=== PATIENT | male | born 1965 | race African-American/Black ===

== ENCOUNTER 2016-12-28 23:24 | Emergency (ER) | payer MEDICAID ==
[~2016-12-28] VITALS: Ht 180.3 cm; Wt 66.7 kg
[~2016-12-28 23:24] MED LIST: ALBUTEROL SULF8.5 GM INH; AUGMENTIN 875-1 EAC1 ORAL; BACTRIM DS TAB1 EAC1 ORAL; BENADRYL50 MG PO; COGENTIN1 MG PO; IBUPROFEN600 M1 PO; MOTRIN600 MG PO; NORCO 5-325 TA1 EACH PO; PROLIXIN10 MG ORAL; TESSALON PERLE100 M2 ORAL; ZITHROMAX250 MG ORAL; ZYPREXA5 MG ORAL
[2016-12-29 00:15] LABS: EOSINOPHILS % (AUTO) 3.1 % (0.0-3.0); LYMPHOCYTES % (AUTO) 33.5 % (20.0-45.0); MEAN CORPUSCULAR HEMOGLOBIN 34.6 PG (27.0-31.0); MEAN CORPUSCULAR HGB CONC 35.1 G/DL (32.0-36.0); MEAN CORPUSCULAR VOLUME 98 FL (80-99); MEAN PLATELET VOLUME 6.7 FL (6.5-10.1); MONOCYTES % (AUTO) 12.6 % (1.0-10.0); NEUTROPHILS % (AUTO) 49.9 % (45.0-75.0); PLATELET COUNT 167 K/UL (150-450); RED BLOOD COUNT 3.68 M/UL (4.70-6.10); RED CELL DISTRIBUTION WIDTH 10.7 % (11.6-14.8); WHITE BLOOD COUNT 6.4 K/UL (4.8-10.8)
[2016-12-29 00:22] LABS: APPEARANCE,URINE CLEAR; KETONES,URINE NEGATIVE (NEGATIVE); LEUKOCYTE ESTERASE ,URINE NEGATIVE (NEGATIVE); NITRITE,URINE NEGATIVE (NEGATIVE); PH,URINE 6 (4.5-8.0); PROTEIN,URINE NEGATIVE (NEGATIVE); UROBILINOGEN,URINE NORMAL MG/DL (0.0-1.0)
--- NOTE | 2016-12-29 00:27 | Emergency Room Report ---
History of Present Illness General Chief Complaint: Abdominal Pain Source: Patient Present Illness HPI Is a 51-year-old male with a history of rheumatoid arthritis. He presents with chief complaint abdominal pain. Onset for last month. Diffuse in nature. Worse with eating. No nausea or vomiting. No diarrhea. He also complaining of generalize leg pain from his arthritis. Pain he said is 10 out of 10. Wanted pain medication for it. No other complaint. No trauma. No fever. Allergies: Coded Allergies: No Known Allergies (Unverified , 10/27/12) Patient History Past Medical History: see triage record, old chart reviewed Past Surgical History: other Pertinent Family History: none Social History: Denies: alcohol use, drug use, smoking Immunizations: other Reviewed Nursing Documentation: PMH: Agreed, PSxH: Agreed Nursing Documentation-PMH Past Medical History: No History, Except For Hx Cardiac Problems: No - bronchitis Hx Hypertension: No - high cholesterol Hx Pacemaker: No Hx Asthma: Yes - bronchitis Hx COPD: No Hx Diabetes: No Hx Cancer: No Hx Gastrointestinal Problems: Yes - ulcers, hx of gall stone Hx Dialysis: No Hx Neurological Problems: No Hx Cerebrovascular Accident: No Hx Seizures: No Review of Systems Eye: Denies: blurred vision, eye pain ENT: Denies: ear pain, nose congestion, throat swelling Respiratory: Denies: cough, shortness of breath Cardiovascular: Denies: chest pain, palpitations Gastrointestinal: Reports: abdominal pain, Denies: diarrhea, nausea, vomiting Musculoskeletal: Reports: joint pain, Denies: back pain Skin: Denies: rash Neurological: Denies: headache, numbness Endocrine: Denies: increased thirst, increased urine Hematologic/Lymphatic: Denies: easy bruising All Other Systems: negative except mentioned in HPI Physical Exam Vital Signs Date Time Temp Pulse Resp B/P Pulse Ox O2 Delivery O2 Flow Rate FiO2 12/28/16 23:37 97.9 76 16 98/65 98 Room Air vitals normal Sp02 EP Interpretation: reviewed, normal General Appearance: well appearing, no apparent distress, other - Very sleepy. Hard time waking up Head: normocephalic, atraumatic Eyes: bilateral eye EOMI, bilateral eye PERRL ENT: hearing grossly normal, normal pharynx Neck: full range of motion, supple, no meningismus Respiratory: chest non-tender, lungs clear, normal breath sounds Cardiovascular #1: regular rate, rhythm, no murmur Gastrointestinal: normal bowel sounds, non tender, no mass, no organomegaly, no bruit, non-distended Musculoskeletal: back normal, gait/station normal, normal range of motion Neurologic: oriented x3 Psychiatric: mood/affect normal Skin: warm/dry Medical Decision Making Diagnostic Impression: Primary Impression: Abdominal pain of unknown etiology ER Course Patient presents with abdominal pain. My exam showed benign abdomen. He sleeping comfortably. No evidence of acute abdomen. No evidence of infection. We'll discharge home. Lab Results Impression labs unremarkable Last Vital Signs Date Time Temp Pulse Resp B/P Pulse Ox O2 Delivery O2 Flow Rate FiO2 12/28/16 23:37 97.9 76 16 98/65 98 Room Air Status: improved Disposition: HOME, SELF-CARE Condition: Stable Scripts Omeprazole Magnesium (PRILOSEC OTC) 20 Mg Tablet. 20 MG ORAL DAILY, #30 TAB Prov: KATIE GIBSON M.D. 12/29/16 Referrals: JIMMIEREFERRING (PCP) Patient Instructions: Abdominal Pain, Adult Additional Instructions: Followup with your in 7 days. You may need a referral to see a environmental economist for colonoscopy and endoscopy. Return if symptom worsen. KATIE GIBSON M.D. Dec 29, 2016 00:26
[2016-12-29 00:35] LABS: ALANINE AMINOTRANSFERASE 20 U/L (3-41); ALBUMIN/GLOBULIN RATIO 1.2 (1.0-2.7); ALCOHOL < 10 mg/dL; ANION GAP 14 (5-15); ASPARTATE AMINO TRANSFERASE 26 U/L (5-40); CALCIUM 9.1 mg/dL (8.6-10.2); CARBON DIOXIDE 28 mEQ/L (20-30); CHLORIDE 99 mEQ/L (98-107); CREATININE 0.9 mg/dL (0.7-1.2); GLOMERULAR FILTRATION RATE > 60 mL/min (>60); HEMOLYSIS 3; LIPASE 36 U/L (< 60); POTASSIUM 3.9 mEQ/L (3.4-4.9); SODIUM 141 mEQ/L (135-145); TOTAL PROTEIN 6.7 g/dL (6.6-8.7)
[2016-12-29] MEDS ORDERED: PRILOSEC OTC20 MG ORAL (01:04)
[2016-12-29 01:14] VITALS: BP 122/78
[2016-12-29 01:17] VITALS: BP 122/78
== END 2016-12-29 01:15 | disposition home or self-care (01) ==
LOC: EMR 12-29 00:07
DX: R10.9 Unspecified abdominal pain (principal); M06.9 Rheumatoid arthritis, unspecified; Z87.19 Personal history of other diseases of the digestive system
CPT/HCPCS: 36415; 80053; 80300; 80329; 81003; 83690; 85025; 99283

== ENCOUNTER 2017-01-15 13:55 | Emergency (ER) | payer MEDICAID ==
[~2017-01-15] VITALS: Ht 182.9 cm; Wt 68.0 kg
[~2017-01-15 13:55] MED LIST changes: +PRILOSEC OTC20 MG ORAL
[2017-01-15 15:16] LABS: APPEARANCE,URINE CLEAR; KETONES,URINE NEGATIVE (NEGATIVE); LEUKOCYTE ESTERASE ,URINE NEGATIVE (NEGATIVE); NITRITE,URINE NEGATIVE (NEGATIVE); PH,URINE 6.5 (4.5-8.0); PROTEIN,URINE NEGATIVE (NEGATIVE); UROBILINOGEN,URINE NORMAL MG/DL (0.0-1.0)
--- NOTE | 2017-01-15 15:23 | Emergency Room Report ---
History of Present Illness General Chief Complaint: Male Urogenital Problems Present Illness HPI 51 YO Male presents to the ED c/o polyuria x 1 year. pt. reports hx of gallstones and ulcers. pt. denies hx of DM. pt. is not cooperative in answering questions, and repeatedly states "read the nurses note." HPI and ROS limited due to poor pt. cooperation. Allergies: Coded Allergies: No Known Allergies (Unverified , 10/27/12) Patient History Past Medical History: see triage record Past Surgical History: none Pertinent Family History: none Reviewed Nursing Documentation: PMH: Agreed, PSxH: Agreed Nursing Documentation-PMH Hx Cardiac Problems: No Hx Hypertension: No Hx Pacemaker: No Hx Asthma: No Hx COPD: No Hx Diabetes: No Hx Cancer: No Hx Gastrointestinal Problems: Yes - ulcers, hx of gall stone Hx Dialysis: No Hx Neurological Problems: No Hx Cerebrovascular Accident: No Hx Seizures: No Review of Systems All Other Systems: limited - due to poor pt. cooperation. Physical Exam Vital Signs Date Time Temp Pulse Resp B/P Pulse Ox O2 Delivery O2 Flow Rate FiO2 01/15/17 14:19 98.4 74 18 102/69 98 Room Air Sp02 EP Interpretation: reviewed, normal General Appearance: no apparent distress, alert, GCS 15, non-toxic Head: normocephalic, atraumatic Eyes: bilateral eye PERRL, bilateral eye normal inspection ENT: hearing grossly normal, normal pharynx, no angioedema, normal voice Neck: full range of motion, supple/symm/no masses Respiratory: lungs clear, normal breath sounds, speaking full sentences - mildly slurred speech. Cardiovascular #1: regular rate, rhythm, no edema Gastrointestinal: normal bowel sounds, non tender, soft, no guarding, no rebound Rectal: deferred Genitourinary: normal inspection, no CVA tenderness Musculoskeletal: back normal, gait/station normal, normal range of motion, non- tender Neurologic: alert, oriented x3, responsive, motor strength/tone normal, sensory intact, speech normal Psychiatric: judgement/insight normal, memory normal, other - Pt is not cooperative, and refuses to answer questions. Skin: normal color, no rash, warm/dry, well hydrated Medical Decision Making PA Attestation Dr. Cartwright is my supervising Physician whom patient management has been discussed with. Diagnostic Impression: Primary Impression: Frequency of urination and polyuria ER Course 51 YO Male presents to the ED c/o polyuria x 1 year. pt. reports hx of gallstones and ulcers. pt. denies hx of DM. pt. is not cooperative in answering questions, and repeatedly states "read the nurses note." HPI and ROS limited due to poor pt. cooperation. Ddx considered but are not limited to UTi , Pyelo, STI, Stone, BPH, Dm, DM insipidus Vital signs: are WNL, pt. is afebrile, non-tachycardic H&PE are most consistent with polyuria, possible UTI, will also check glucose, and UA. pt. is non-toxic in appearance, NAD, and with provided information and PE I do not suspect an emergent condition at this time. d/w Supervising physician plan of evaluation. suspect ETOH. ORDERS: - UA labs are attached : no evidence of infection, normal specific gravity. - AccuCheck: 93 - performed by NAVYA Gotti ED INTERVENTIONS: None required at this time. - D/w pt. the results of his UA and accucheck, and to follow up with PCP. D/w pt. to return to ED with worsening of symptoms or new symptoms. DISCHARGE: At this time pt. is stable for d/c to home. Will provide printed patient care instructions, and any necessary prescriptions. Care plan and follow up instructions have been discussed with the patient prior to discharge. Labs Test 01/15/17 14:53 Urine Color Pale yellow Urine Appearance Clear Urine pH 6.5 (4.5-8.0) Urine Specific [place] 1.010 (1.005-1.035) Urine Protein Negative (NEGATIVE) Urine Glucose (UA) Negative (NEGATIVE) Urine Ketones Negative (NEGATIVE) Urine Occult Blood Negative (NEGATIVE) Urine Nitrite Negative (NEGATIVE) Urine Bilirubin Negative (NEGATIVE) Urine Urobilinogen Normal MG/DL (0.0-1.0) Urine Leukocyte Esterase Negative (NEGATIVE) Last Vital Signs Date Time Temp Pulse Resp B/P Pulse Ox O2 Delivery O2 Flow Rate FiO2 01/15/17 14:19 98.4 74 18 102/69 98 Room Air Disposition: HOME, SELF-CARE Condition: Stable Referrals: JIMMIEREFERRING (PCP) Patient Instructions: Urinary Frequency Additional Instructions: Take medications as directed. Follow up with YOUR PRIMARY CARE PROVIDER in 3-5 days, for further evaluation of your symptoms. Please see list of free/reduced cost health clinics for follow up if you do not have a primary care provider. Return sooner to ED if new symptoms occur, or current symptoms become worse. - Please note that this Emergency Department Report was dictated using [email or web address] teacher technology software, occasionally this can lead to erroneous entry secondary to interpretation by the dictation equipment. Jocy Bell Jan 15, 2017 15:23
[2017-01-15 15:47] VITALS: BP 122/73
== END 2017-01-15 15:47 | disposition home or self-care (01) ==
LOC: EMR 14:56
DX: R35.8 Other polyuria (principal); R35.0 Frequency of micturition
CPT/HCPCS: 81003; 82962; 99283

== ENCOUNTER 2017-02-16 02:25 | Emergency (ER) | payer MEDICAID ==
[~2017-02-16] VITALS: Ht 182.9 cm; Wt 66.7 kg
[2017-02-16 02:50] VITALS: BP 100/65
[2017-02-16] MEDS ORDERED: TAMSULOSIN HCL0.4 MG ORAL (03:25)
--- NOTE | 2017-02-16 03:26 | Emergency Room Report ---
History of Present Illness General Chief Complaint: General Complaint Source: Patient Present Illness HPI Is a 51-year-old male with history of gallstone. He came in complaining of abdominal pain. Is a chronic problem for him. Once he got here he went to the bathroom and himself. He's been sitting down cleaning his shoes. He is very vague in his pain complaint. No nausea no vomiting. No fever or chills. He is asking for food. Also has a chronic issue with his "kidneys". What medicine for it. He said he had a hard time urinating and takes forever to urinate. Denies any fever chill. Denies any nausea vomiting. Been here for the same issue. Allergies: Coded Allergies: No Known Allergies (Unverified , 10/27/12) Patient History Past Medical History: see triage record, old chart reviewed Past Surgical History: none Pertinent Family History: none Social History: Reports: smoking Immunizations: other Reviewed Nursing Documentation: PMH: Agreed, PSxH: Agreed Nursing Documentation-PMH Past Medical History: No History, Except For Hx Cardiac Problems: No Hx Hypertension: No Hx Pacemaker: No Hx Asthma: No Hx COPD: No Hx Diabetes: No Hx Cancer: No Hx Gastrointestinal Problems: Yes - ulcers, hx of gall stone Hx Dialysis: No Hx Neurological Problems: No Hx Cerebrovascular Accident: No Hx Seizures: No Review of Systems Eye: Denies: blurred vision, eye pain ENT: Denies: ear pain, nose congestion, throat swelling Respiratory: Denies: cough, shortness of breath Cardiovascular: Denies: chest pain, palpitations Gastrointestinal: Reports: abdominal pain, Denies: diarrhea, nausea, vomiting Musculoskeletal: Denies: back pain, joint pain Skin: Denies: rash Neurological: Denies: headache, numbness Endocrine: Denies: increased thirst, increased urine Hematologic/Lymphatic: Denies: easy bruising All Other Systems: negative except mentioned in HPI Physical Exam Vital Signs Date Time Temp Pulse Resp B/P Pulse Ox O2 Delivery O2 Flow Rate FiO2 02/16/17 02:46 97.9 77 15 100/65 100 Room Air vitals normal Sp02 EP Interpretation: reviewed, normal General Appearance: well appearing, no apparent distress, alert Head: normocephalic, atraumatic Eyes: bilateral eye EOMI, bilateral eye PERRL ENT: hearing grossly normal, normal pharynx Neck: full range of motion, supple, no meningismus Respiratory: chest non-tender, lungs clear, normal breath sounds Cardiovascular #1: regular rate, rhythm, no murmur Gastrointestinal: normal bowel sounds, non tender, no mass, no organomegaly, no bruit, non-distended Musculoskeletal: back normal, gait/station normal, normal range of motion Psychiatric: mood/affect normal Skin: warm/dry Medical Decision Making Diagnostic Impression: Primary Impression: Abdominal pain Qualified Codes: R10.84 - Generalized abdominal pain Additional Impression: Dysuria ER Course Patient with abdominal pain. This is chronic in nature. He looks very comfortable. Notice of acute abdomen. No pain on my exam. We'll discharge home. Last Vital Signs Date Time Temp Pulse Resp B/P Pulse Ox O2 Delivery O2 Flow Rate FiO2 02/16/17 02:46 97.9 77 15 100/65 100 Room Air Status: improved Disposition: HOME, SELF-CARE Condition: Stable Scripts Tamsulosin Hcl (TAMSULOSIN HCL*) 0.4 Mg Cap.er.24h 0.4 MG ORAL BEDTIME, #30 CAP Prov: KATIE GIBSON M.D. 02/16/17 Referrals: LYUDMIAL SAMUEL (PCP) Additional Instructions: Followup with your DrChristy in 7 days. Return if symptom worsen. KATIE GIBSON M.D. Feb 16, 2017 03:26
[2017-02-16 03:45] VITALS: BP 100/65
== END 2017-02-16 03:45 | disposition home or self-care (01) ==
LOC: EMR 03:05
DX: R10.9 Unspecified abdominal pain (principal); R30.0 Dysuria; G89.29 Other chronic pain; F17.200 Nicotine dependence, unspecified, uncomplicated
CPT/HCPCS: 99283

== ENCOUNTER 2017-03-23 05:33 | Emergency (ER) | payer MEDICAID ==
[~2017-03-23] VITALS: Ht 182.9 cm; Wt 70.8 kg
[~2017-03-23 05:33] MED LIST changes: +TAMSULOSIN HCL0.4 MG ORAL
[2017-03-23] MEDS ORDERED: Ketorolac 60mg Inj IM ONE (06:15)
[2017-03-23] MEDS ORDERED: TYLENOL325 MG ORAL (06:17)
[2017-03-23] MEDS ORDERED: LIDODERM700 M1 TOPIC (06:17)
[2017-03-23 06:31] VITALS: BP 110/74
[2017-03-23 06:43] VITALS: BP 110/74
--- NOTE | 2017-03-24 01:30 | Emergency Room Report ---
History of Present Illness General Chief Complaint: Pain Source: Patient Present Illness HPI Patient 51-year-old male who presented after increased generalized neck pain. Patient gradual onset of symptoms. Patient prior history of rheumatoid arthritis. He reported having a recent trauma. The patient denied any numbness or weakness to his extremities. He stated that he had previously been evaluated and diagnosed with rheumatoid arthritis Allergies: Coded Allergies: No Known Allergies (Unverified , 10/27/12) Patient History Past Medical History: see triage record Reviewed Nursing Documentation: PMH: Agreed, PSxH: Agreed Nursing Documentation-PMH Hx Cardiac Problems: No Hx Hypertension: No Hx Pacemaker: No Hx Asthma: No Hx COPD: No Hx Diabetes: No Hx Cancer: No Hx Gastrointestinal Problems: Yes - ulcers, hx of gall stone Hx Dialysis: No Hx Neurological Problems: No Hx Cerebrovascular Accident: No Hx Seizures: No Review of Systems All Other Systems: negative except mentioned in HPI Physical Exam Vital Signs Date Time Temp Pulse Resp B/P (MAP) Pulse Ox O2 Delivery O2 Flow Rate FiO2 03/23/17 06:03 97.3 66 18 106/74 98 Room Air Sp02 EP Interpretation: reviewed, normal General Appearance: normal inspection, well appearing, no apparent distress, alert, GCS 15 Head: atraumatic ENT: normal ENT inspection, hearing grossly normal, normal voice Neck: normal inspection, full range of motion, supple, no bony tend Respiratory: normal inspection, lungs clear, normal breath sounds, no respiratory distress, no retraction, no wheezing Cardiovascular #1: regular rate, rhythm, no edema Gastrointestinal: normal inspection, normal bowel sounds, non tender, soft, no guarding, no hernia Genitourinary: no CVA tenderness Musculoskeletal: normal inspection, back normal, normal range of motion Neurologic: normal inspection, alert, responsive, speech normal Psychiatric: normal inspection, judgement/insight normal, mood/affect normal Skin: normal inspection, normal color, no rash Medical Decision Making Diagnostic Impression: Primary Impression: Chronic joint pain Additional Impression: Pain ER Course Presented for neck pain. Differential diagnosis included vertebral artery dissection, myocardial infarction, cervical fracture, arthritis, spondylolithises. Patient's benign exam and does not appear to require any further imaging or laboratory testing at this time. The patient appears to have arthritic pain to his neck which is likely related to his chronic joint pain. The patient has no recent trauma suggestive of need of x-rays and has adequate range of motion. The patient was given prescription for pain medications. The patient is advised to follow up with primary care doctor in 1 -2 days. Patient is advised to return if any worsening condition or if any changes in status that are concerning. Last Vital Signs Date Time Temp Pulse Resp B/P (MAP) Pulse Ox O2 Delivery O2 Flow Rate FiO2 03/23/17 06:47 97.7 03/23/17 06:43 18 110/74 98 Room Air 03/23/17 06:03 66 Status: improved Disposition: HOME, SELF-CARE Condition: Stable Scripts Acetaminophen (Tylenol) 325 Mg Tablet 650 MG ORAL Q6H Y for Prn Pain/Headache/Temp > 101, #30 TAB 0 Refills Prov: Ras Cartwright 03/23/17 Lidocaine (Lidoderm) 1 Each Adh..patch 1 PATCH TOPIC DAILY, #7 PATCH 0 Refills Patch(es) may remain in place for up to 12 hours in any 24-hour period. Prov: Ras Cartwright 03/23/17 Referrals: NON PHYSICIAN (PCP) Patient Instructions: Rheumatoid Arthritis Ras Cartwright Mar 24, 2017 01:30
== END 2017-03-23 06:42 | disposition home or self-care (01) ==
LOC: EMR 06:35
DX: G89.29 Other chronic pain (principal); M54.2 Cervicalgia; M06.9 Rheumatoid arthritis, unspecified
CPT/HCPCS: 96372; 99284

== ENCOUNTER 2017-04-28 00:04 | Emergency (ER) | payer MEDICAID ==
[~2017-04-28] VITALS: Ht 182.9 cm; Wt 68.0 kg
[~2017-04-28 00:04] MED LIST changes: +LIDODERM700 M1 TOPIC; +TYLENOL325 MG ORAL
[2017-04-28 00:20] VITALS: BP 106/71
[2017-04-28] MEDS ORDERED: AZITHROMYCIN250 MG ORAL (00:42)
[2017-04-28] MEDS ORDERED: FLONASE SENSIM9.9 ML NS (00:42)
--- NOTE | 2017-04-28 00:42 | Emergency Room Report ---
History of Present Illness General Chief Complaint: Upper Respiratory Illness Source: Patient, Medical Record Present Illness HPI Is a 51-year-old [place] male who is a smoker. He presents with chief complaint of sinus congestion for last 3 weeks. He went to [facility] and prescribe Sudafed. Said is not helping. No nausea vomiting. No fever or chills. Does have coughing. Denies any other complaint. Allergies: Coded Allergies: No Known Allergies (Unverified , 10/27/12) Patient History Past Medical History: see triage record, old chart reviewed Past Surgical History: other Pertinent Family History: none Social History: Reports: smoking Immunizations: other Reviewed Nursing Documentation: PMH: Agreed, PSxH: Agreed Nursing Documentation-PMH Hx Cardiac Problems: No Hx Hypertension: No Hx Pacemaker: No Hx Asthma: No Hx COPD: No Hx Diabetes: No Hx Cancer: No Hx Gastrointestinal Problems: Yes - ulcers, hx of gall stone Hx Dialysis: No Hx Neurological Problems: No Hx Cerebrovascular Accident: No Hx Seizures: No Review of Systems Eye: Denies: eye pain, blurred vision ENT: Reports: nose congestion, Denies: ear pain, throat swelling Respiratory: Reports: cough, Denies: shortness of breath Cardiovascular: Denies: chest pain, palpitations Gastrointestinal: Denies: abdominal pain, diarrhea, nausea, vomiting Musculoskeletal: Denies: back pain, joint pain Skin: Denies: rash Neurological: Denies: headache, numbness Endocrine: Denies: increased thirst, increased urine Hematologic/Lymphatic: Denies: easy bruising All Other Systems: negative except mentioned in HPI Physical Exam Vital Signs Date Time Temp Pulse Resp B/P (MAP) Pulse Ox O2 Delivery O2 Flow Rate FiO2 04/28/17 00:09 97.7 78 16 106/71 100 Room Air vitals normal Sp02 EP Interpretation: reviewed, normal General Appearance: well appearing, no apparent distress, alert Head: normocephalic, atraumatic Eyes: bilateral eye PERRL, bilateral eye EOMI ENT: hearing grossly normal, normal pharynx, other - Ears are obstructive with cerumen. Sinus congestion. Tenderness over maxillary sinus. Neck: full range of motion, supple, no meningismus Respiratory: chest non-tender, lungs clear, normal breath sounds Cardiovascular #1: regular rate, rhythm, no murmur Gastrointestinal: normal bowel sounds, non tender, no mass, no organomegaly, no bruit, non-distended Musculoskeletal: back normal, gait/station normal, normal range of motion Psychiatric: mood/affect normal Skin: warm/dry Procedures Additional Procedure Procedure Narrative Procedure: Cerumen disimpaction Indication: Cerumen impaction Description: I irrigated both ear canal with normal saline using an 18-gauge angiocatheter. Copious amount of cerumen removed. Patient felt better. Tolerated procedure without a problem. No trauma. TMs normal. No perforation. Medical Decision Making Diagnostic Impression: Primary Impression: Upper respiratory symptom Additional Impressions: Sinusitis, acute maxillary Qualified Codes: J01.00 - Acute maxillary sinusitis, unspecified Cerumen impaction Qualified Codes: H61.23 - Impacted cerumen, bilateral ER Course Patient with a viral upper respiratory infection. He has sinusitis. Symptoms been ongoing for over 3 weeks now. Because he is a smoker and duration of symptoms, will go ahead and put on antibiotics. Last Vital Signs Date Time Temp Pulse Resp B/P (MAP) Pulse Ox O2 Delivery O2 Flow Rate FiO2 04/28/17 00:09 97.7 78 16 106/71 100 Room Air Status: improved Disposition: HOME, SELF-CARE Condition: Stable Scripts Azithromycin* (ZITHROMAX*) 250 Mg Tablet 250 MG ORAL DAILY, #6 TAB 0 Refills Take two tablets by mouth today, then take one tablet by mouth daily for four days Prov: KATIE GIBSON M.D. 04/28/17 Fluticasone Furoate (FLONASE SENSIMIST) 9.9 Ml [place].susp 9.9 ML NS BID, #1 UNIT Prov: KATIE GIBSON M.D. 04/28/17 Patient Instructions: Upper Respiratory Infection, Adult Additional Instructions: Stop smoking. Followup with your DrChristy in 2 to 3 days. Return if worse. KATIE GIBSON M.D. Apr 28, 2017 00:42
[2017-04-28 00:50] VITALS: BP 106/71
== END 2017-04-28 00:50 | disposition home or self-care (01) ==
LOC: EMR 00:15
DX: J01.00 Acute maxillary sinusitis, unspecified (principal); H61.23 Impacted cerumen, bilateral; F17.200 Nicotine dependence, unspecified, uncomplicated; B34.9 Viral infection, unspecified
CPT/HCPCS: 69210; 99283

== ENCOUNTER 2018-02-20 05:18 | Emergency (ER) | payer MEDICAID ==
[~2018-02-20] VITALS: Ht 182.9 cm; Wt 63.5 kg
[~2018-02-20 05:18] MED LIST changes: +AZITHROMYCIN250 MG ORAL; +FLONASE SENSIM9.9 ML NS
[2018-02-20] MEDS ORDERED: Acetaminophen 500mg (ES) tab ORAL ONE (05:45)
[2018-02-20] MEDS ORDERED: PRILOSEC OTC20 MG ORAL (06:02)
[2018-02-20] MEDS ORDERED: LIDODERM700 M1 TOPIC (06:02)
[2018-02-20 06:09] VITALS: BP 101/65
--- NOTE | 2018-02-27 08:01 | Emergency Room Report ---
History of Present Illness General Chief Complaint: Pain Source: Patient Present Illness HPI Patient had 52-year-old male presented after increased lower extremity pain. Patient prior history of chronic arthritis. He reports having been taking pain medications without any improvement. Patient gradual onset of symptoms. He denies recent trauma. The patient denies any numbness or taking to his extremities. Patient reportedly had increased pain with ambulation. Allergies: Coded Allergies: No Known Allergies (Unverified , 10/27/12) Patient History Past Medical History: see triage record Nursing Documentation-H Hx Cardiac Problems: No - ARTHRITIS Hx Hypertension: No Hx Pacemaker: No Hx Asthma: No Hx COPD: No Hx Diabetes: No Hx Cancer: No Hx Gastrointestinal Problems: Yes - ulcers, hx of gall stone Hx Dialysis: No Hx Neurological Problems: No Hx Cerebrovascular Accident: No Hx Seizures: No Physical Exam General Appearance: well appearing, no apparent distress, alert, GCS 15, Chronically Ill Head: normocephalic, atraumatic ENT: hearing grossly normal, normal voice Neck: full range of motion, supple Respiratory: no respiratory distress, speaking full sentences Musculoskeletal: no calf tenderness, decreased range of mation, swelling Neurologic: normal inspection, alert, oriented x3, responsive, site worker III-XII nml as tested, motor strength/tone normal, abnormal gait - antalgic gait Psychiatric: mood/affect normal Skin: no rash Medical Decision Making Diagnostic Impression: Primary Impression: Chronic joint pain ER Course Patient present for extremity pain.Differential diagnosis included but was not limited to fracture, contusion, vascular insufficiency, aortic aneurysm, cellulitis. Patient has a benign exam and does not appear to require any further imaging or laboratory testing at this time. Patient presented with exacerbation of his chronic pain. Patient does not show any evidence of infection or vascular insufficiency at this time. Patient is given prescriptions for nonnarcotic pain medications. Status: improved Disposition: HOME, SELF-CARE Condition: Stable Scripts Omeprazole Magnesium (PRILOSEC OTC) 20 Mg Tablet.dr 20 MG ORAL DAILY, #30 TAB Prov: Ras Cartwright MD 02/20/18 Lidocaine (Lidoderm) 1 Each Adh..patch 1 PATCH TOPIC DAILY, #7 PATCH 0 Refills Patch(es) may remain in place for up to 12 hours in any 24-hour period. Prov: Ras Cartwright MD 02/20/18 Patient Instructions: Gastritis, Adult, Arthritis Ras Cartwright MD Feb 27, 2018 08:01
== END 2018-02-20 06:09 | disposition home or self-care (01) ==
LOC: EMR 05:49
DX: G89.29 Other chronic pain (principal); M25.50 Pain in unspecified joint; R26.9 Unspecified abnormalities of gait and mobility; M79.669 Pain in unspecified lower leg
CPT/HCPCS: 99283

== ENCOUNTER 2018-09-23 20:57 | Emergency (ER) | payer MEDICAID ==
[~2018-09-23] VITALS: Ht 172.7 cm; Wt 68.0 kg
[2018-09-23] MEDS ORDERED: NKM (21:36)
[2018-09-23 21:38] VITALS: BP 101/72
--- NOTE | 2018-09-23 21:40 | NUR ---
ED Nurse Note: Patient walked into ED stating he was "tired and hungry" denies any pain. pt vital signs are stable. pt is alert and oriented times 4.
[2018-09-23] MEDS ORDERED: guaiFENesin 100mg/5ml Liq ud ORAL ONE (21:45)
[2018-09-23] MEDS ORDERED: Acetaminophen 500mg (ES) tab ORAL ONE (21:45)
--- NOTE | 2018-09-23 21:52 | Emergency Room Report ---
History of Present Illness General Chief Complaint: General Complaint Source: Patient Present Illness HPI Patient is a 53-year-old male presented after increased hunger. Patient said he was hungry and denied any other current complaints. He stated he wanted some codeine-containing cough syrup. There is nothing to do with him he said he was hungry as well as here Allergies: Coded Allergies: No Known Allergies (Unverified , 10/27/12) Patient History Past Medical History: see triage record Reviewed Nursing Documentation: PMH: Agreed; PSxH: Agreed Nursing Documentation-PMH Past Medical History: No History, Except For Hx Cardiac Problems: No - ARTHRITIS Hx Hypertension: No Hx Pacemaker: No Hx Asthma: No Hx COPD: No Hx Diabetes: No Hx Cancer: No Hx Gastrointestinal Problems: Yes - ulcers, hx of gall stone Hx Dialysis: No Hx Neurological Problems: No Hx Cerebrovascular Accident: No Hx Seizures: No Review of Systems All Other Systems: negative except mentioned in HPI Physical Exam Vital Signs Date Time Temp Pulse Resp B/P (MAP) Pulse Ox O2 Delivery O2 Flow Rate FiO2 09/23/18 21:31 98.1 83 18 101/72 98 Room Air 09/23/18 21:38 98 General Appearance: well appearing, no apparent distress, alert, GCS 15 Head: normocephalic, atraumatic ENT: hearing grossly normal, normal voice Neck: full range of motion, supple Respiratory: chest non-tender, lungs clear, normal breath sounds, no respiratory distress, speaking full sentences Cardiovascular #1: normal inspection, regular rate, rhythm, no edema Gastrointestinal: normal inspection, soft Musculoskeletal: normal inspection, no calf tenderness Neurologic: normal inspection, alert, oriented x3, responsive, normal gait Psychiatric: mood/affect normal Skin: no rash Medical Decision Making Homeless Attestation I, Dr. Cartwright, the Treating physician, has assessed whether the patient is alert and oriented to person, place and time and has determined that the patient is clinically stable for discharge. Diagnostic Impression: Primary Impression: Hunger pain ER Course Patient presented for being hungry. He also additionally reports having some chronic pain to his right knee. Patient stated that he had increased hunger since leaving his rehab facility. Patient denies any other current medical complaints. Patient appears to have no acute medical need at this time. He was given some Tylenol due to chronic joint pain but does not appear to require any chronic medications.Patient was given a sandwich as well as some juice. Patient was noted to request some codeine-containing cough syrup but does not appear to have a cough. Patient will not be given this.Patient does not appear to require any current medical management. Last Vital Signs Date Time Temp Pulse Resp B/P (MAP) Pulse Ox O2 Delivery O2 Flow Rate FiO2 09/23/18 21:38 98.1 61 18 101/72 98 Room Air 09/23/18 21:38 98 Status: improved Disposition: HOME, SELF-CARE Condition: Stable Patient Instructions: Arthritis Ras Cartwright MD Sep 23, 2018 21:52
[2018-09-23 21:58] VITALS: BP 101/72
--- NOTE | 2018-09-23 21:59 | NUR ---
ER DISCHARGE NOTE: Patient is cleared to be discharged per ERMD, pt is aox4, on room air, with stable vital signs. pt was given dc and prescription instructions, pt was able to verbalize understanding, pt id band removed without complications. pt is able to ambulate with steady gait. pt took all belongings.
== END 2018-09-23 22:09 | disposition home or self-care (01) ==
LOC: EMR 21:59
DX: T73.0XXA Starvation, initial encounter (principal); G89.29 Other chronic pain; M25.561 Pain in right knee
CPT/HCPCS: 99281

== ENCOUNTER 2019-02-21 05:51 | Emergency (ER) | payer MEDICAID ==
[~2019-02-21] VITALS: Ht 170.2 cm; Wt 63.5 kg
[~2019-02-21 05:51] MED LIST changes: +NKM
[2019-02-21 06:00] VITALS: BP 106/70
--- NOTE | 2019-02-21 06:01 | NUR ---
ED Nurse Note: Patient walked in to ER due to lower extremity pain
[2019-02-21] MEDS ORDERED: IBUPROFEN600 MG ORAL (06:20)
--- NOTE | 2019-02-21 06:20 | Emergency Room Report ---
History of Present Illness General Chief Complaint: Pain Source: Patient, Medical Record Present Illness HPI Is a 53-year-old male who has history of chronic pain. He said he has arthritis in his legs and complaining of knee pain bilaterally. Is a chronic problem. He said he wants pain medication and cough medicine. He denies any coughing. No nausea no vomiting. Pain is 8 out of 10. No fever chills but no trauma. Worse with walking. Allergies: Coded Allergies: No Known Allergies (Unverified , 10/27/12) Patient History Past Medical History: see triage record, old chart reviewed Past Surgical History: none Pertinent Family History: none Social History: Reports: smoking Immunizations: other Reviewed Nursing Documentation: PMH: Agreed; PSxH: Agreed Nursing Documentation-PMH Past Medical History: No History, Except For Hx Cardiac Problems: No - ARTHRITIS Hx Hypertension: No Hx Pacemaker: No Hx Asthma: No Hx COPD: No Hx Diabetes: No Hx Cancer: No Hx Gastrointestinal Problems: Yes - ulcers, hx of gall stone Hx Dialysis: No Hx Neurological Problems: Yes - ARTHRITIS Hx Cerebrovascular Accident: No Hx Seizures: No Review of Systems Eye: Denies: eye pain, blurred vision ENT: Denies: ear pain, nose congestion, throat swelling Respiratory: Denies: cough, shortness of breath Cardiovascular: Denies: chest pain, palpitations Gastrointestinal: Denies: abdominal pain, diarrhea, nausea, vomiting Musculoskeletal: Reports: joint pain; Denies: back pain Skin: Denies: rash Neurological: Denies: headache, numbness Endocrine: Denies: increased thirst, increased urine Hematologic/Lymphatic: Denies: easy bruising All Other Systems: negative except mentioned in HPI Physical Exam Vital Signs Date Time Temp Pulse Resp B/P (MAP) Pulse Ox O2 Delivery O2 Flow Rate FiO2 02/21/19 05:52 99.0 63 16 106/70 (82) 95 Vitals normal Sp02 EP Interpretation: reviewed, normal General Appearance: well appearing, no apparent distress, alert Head: normocephalic, atraumatic Eyes: bilateral eye PERRL, bilateral eye EOMI ENT: hearing grossly normal, normal pharynx Neck: full range of motion, supple, no meningismus Respiratory: chest non-tender, lungs clear, normal breath sounds Cardiovascular #1: regular rate, rhythm, no murmur Gastrointestinal: normal bowel sounds, non tender, no mass, no organomegaly, no bruit, non-distended Musculoskeletal: back normal, gait/station normal, normal range of motion Psychiatric: mood/affect normal Medical Decision Making Diagnostic Impression: Primary Impression: Knee pain, bilateral Qualified Codes: M25.561 - Pain in right knee; M25.562 - Pain in left knee ER Course Presents with acute on chronic no trauma to warrant x-rays. No evidence of septic joint. No cellulitis. Patient walking without any difficulty. He is not coughing. He wanted narcotics initially. Last Vital Signs Date Time Temp Pulse Resp B/P (MAP) Pulse Ox O2 Delivery O2 Flow Rate FiO2 02/21/19 06:00 99.0 16 106/70 95 02/21/19 05:52 63 Status: unchanged Disposition: HOME, SELF-CARE Condition: Stable Scripts Ibuprofen* (MOTRIN*) 600 Mg Tablet 600 MG ORAL THREE TIMES A DAY, #30 TAB 0 Refills Prov: Eloy Hudson MD 02/21/19 Additional Instructions: Follow-up with your doctor in 7 days. Return if symptoms worsen. Eloy Hudson MD Feb 21, 2019 06:20
--- NOTE | 2019-02-21 06:32 | NUR ---
ED Nurse Note: Pt cleared by health care Provider for discharge. DC instructions/prescription was given and explained to pt and verbalized understanding of teachings. All medical deviecs such as ID band removed. Pt is AAO x4, ambulatory and left with all personal belongings.
--- NOTE | 2019-02-21 06:32 | NUR ---
ED Nurse Note: Pt was offered resources, rx, food but refused.
== END 2019-02-21 06:51 | disposition home or self-care (01) ==
LOC: EMR 06:34
DX: M25.561 Pain in right knee (principal); M25.562 Pain in left knee; F17.200 Nicotine dependence, unspecified, uncomplicated; M19.90 Unspecified osteoarthritis, unspecified site
CPT/HCPCS: 99282

== ENCOUNTER 2020-05-14 09:43 | Emergency (ER) | payer MEDICAID ==
[~2020-05-14] VITALS: Ht 182.9 cm; Wt 68.0 kg
[~2020-05-14 09:43] MED LIST changes: +IBUPROFEN600 MG ORAL
[2020-05-14 10:30] VITALS: BP 113/78
--- NOTE | 2020-05-14 10:38 | NUR ---
ED Nurse Note: Patient walked in due to coughing and cold x 4 weeks and is worse x 2 days. States he coughs up yellow phlegm. No reports of N/V/D. AAO x4 and ambulatory. Speaks in full sentences.
--- NOTE | 2020-05-14 10:39 | NUR ---
ED Nurse Note: Dr Jenkins at the bed side.
[2020-05-14] MEDS ORDERED: IBUPROFEN600 M1 ORAL (10:49)
[2020-05-14] MEDS ORDERED: VISTARIL50 MG ORAL (10:49)
[2020-05-14] MEDS ORDERED: PROMETHAZINE-D118 ML ORAL (10:49)
[2020-05-14] MEDS ORDERED: FLOMAX0.4 MG ORAL (10:49)
[2020-05-14 11:01] VITALS: BP 125/70
--- NOTE | 2020-05-14 11:01 | NUR ---
ER DISCHARGE NOTE: Patient is cleared to be discharged per ERMD, pt is aox4, on room air, with stable vital signs. pt was given dc and prescription instructions, pt was able to verbalize understanding, pt id band removed. pt is able to ambulate with steady gait. pt took all belongings.
--- NOTE | 2020-05-14 11:06 | Emergency Room Report ---
History of Present Illness General Chief Complaint: Upper Respiratory Illness Source: Patient Present Illness HPI Patient presents emergency department today with multiple complaints. Most of her complaints are chronic. Patient states that he has a headache chronic cough for months. He is requesting cough medications. Review of medical records show the patient has been here in the past requesting cough medications. I feel that is reasonable. Patient's lung exam is normal. He denies any phlegm production. Denies any fever nausea vomiting diarrhea chills. Symptoms noted to be mild to moderate. Patient also states that he has difficulty sleeping is requesting sleep medications. He denies any drug abuse or alcohol abuse. Patient also states that he often has to get up to urinate and has frequent urination. He states that he did does not have any dysuria urinary frequency in terms of the infection. But he states that he does have chronic issues with frequent urination. States that he usually gets medications. He states that he usually gets Flomax. Therefore we will refill patient's Flomax per his request. Patient also states that he has arthritis body aches and pains requesting Motrin. States a second in the past. Denies any leg pain at this time. Denies any trauma. No other complaints are noted patient noted to moderate. No other modifying factors. No other associated signs and symptoms. No other complaints were noted. Allergies: Coded Allergies: No Known Allergies (Unverified , 10/27/12) COVID-19 Screening Contact w/high risk pt: No Recent Travel to affected area: No Experienced COVID-19 symptoms?: No COVID-19 Testing performed BUTCHER HEAD: No Patient History Past Medical History: other - Chronic cough, insomnia, BPH Past Surgical History: none Pertinent Family History: none Social History: Denies: smoking, alcohol use, drug use Reviewed Nursing Documentation: PMH: Agreed; PSxH: Agreed Nursing Documentation-PMH Past Medical History: No History, Except For Hx Cardiac Problems: No - ARTHRITIS Hx Hypertension: No Hx Pacemaker: No Hx Asthma: No Hx COPD: No Hx Diabetes: No Hx Cancer: No Hx Gastrointestinal Problems: Yes - ulcers, hx of gall stone Hx Dialysis: No Hx Neurological Problems: Yes - ARTHRITIS Hx Cerebrovascular Accident: No Hx Seizures: No Review of Systems All Other Systems: negative except mentioned in HPI Physical Exam Vital Signs Date Time Temp Pulse Resp B/P (MAP) Pulse Ox O2 Delivery O2 Flow Rate FiO2 05/14/20 10:30 98.1 76 18 113/78 96 Room Air Sp02 EP Interpretation: reviewed, normal General Appearance: normal inspection, well appearing, no apparent distress, alert Head: atraumatic Eyes: bilateral eye normal inspection ENT: normal ENT inspection, hearing grossly normal, normal voice Neck: normal inspection, full range of motion, supple, no bony tend Respiratory: normal inspection, lungs clear, normal breath sounds, no respiratory distress, no retraction, no wheezing Cardiovascular #1: regular rate, rhythm, no edema Gastrointestinal: normal inspection, normal bowel sounds, non tender, soft, no guarding, no hernia Genitourinary: no CVA tenderness Musculoskeletal: normal inspection, back normal, normal range of motion Neurologic: alert, responsive, speech normal, normal inspection Psychiatric: judgement/insight normal, no suicidal/homicidal ideation, no delusions, other - Multiple complaints, slightly anxious Skin: no rash Medical Decision Making Diagnostic Impression: Primary Impression: Benign prostate hyperplasia Additional Impressions: Insomnia Cough Acute bronchitis ER Course Patient presents emergency department today with multiple complaints. Differential considerations include psychiatric disease, BPH, insomnia, bronchitis just name a few. Given patient's multiple complaints of of the complicated patient. Patient's exam however was normal. Given patient normal exam as well as reasonable to give the patient some Vistaril for sleep as well as for promethazine with DM. Patient was also given Flomax for his complaint of BPH. Patient is advised to follow up with primary doctor in 2-3 days and return the emergency room for any worsening symptoms and as needed. Last Vital Signs Date Time Temp Pulse Resp B/P (MAP) Pulse Ox O2 Delivery O2 Flow Rate FiO2 05/14/20 10:37 76 18 Room Air 05/14/20 10:30 98.1 113/78 (90) 96 Status: improved Disposition: HOME, SELF-CARE Condition: Stable Scripts Hydroxyzine Pamoate* (VISTARIL*) 50 Mg Capsule 50 MG ORAL QHS for sleep, #20 TAB 0 Refills Prov: Yvon Jenkins MD 05/14/20 Ibuprofen* (MOTRIN*) 600 Mg Tablet 600 MG ORAL Q6H PRN for FOR PAIN, #20 TAB 0 Refills Prov: Yvon Jenkins MD 05/14/20 Tamsulosin HCl (Flomax) 0.4 Mg Cap.er.24h 0.4 MG ORAL DAILY for BPH, #30 CAP Prov: Yvon Jenkins MD 05/14/20 D-Methorphan Hb/Prometh Hcl* (PROMETHAZINE-DM SYRUP*) 118 Ml Syrup 5 ML ORAL Q4H PRN for For Cough for 10 Days, ML 0 Refills Prov: Yvon Jenkins MD 05/14/20 Patient Instructions: Acute Bronchitis Yvon Jenkins MD May 14, 2020 11:06
== END 2020-05-14 11:00 | disposition home or self-care (01) ==
LOC: EMR 10:40
DX: J20.9 Acute bronchitis, unspecified (principal); N40.0 Benign prostatic hyperplasia without lower urinary tract symptoms; G47.00 Insomnia, unspecified; M19.90 Unspecified osteoarthritis, unspecified site
CPT/HCPCS: 99282